=== PATIENT | female | born 2000 | race Two or more races ===

== ENCOUNTER 2024-05-08 10:33 | Emergency (ER) | payer OTHER ==
[2024-05-08 11:11] LABS: HCG UR QUAL NEGATIVE
[2024-05-08] MEDS ORDERED: iohexoL-300 100 ML VIAL ONE (11:23)
[2024-05-08 11:32] LABS: BASOPHILS # (AUTO) 0.1 10^3/uL (0.0-0.1); BASOPHILS % (AUTO) 0.9 %; EOSINOPHILS # (AUTO) 0.1 10^3/uL (0.0-0.7); EOSINOPHILS % (AUTO) 0.7 %; HCT - HEMATOCRIT 37.6 % (37.0-47.0); HGB - HEMOGLOBIN 12.3 g/dL (12.0-16.0); LYMPHOCYTES # (AUTO) 4.4 10^3/uL (1.5-3.5); LYMPHOCYTES % (AUTO) 46.3 %; MEAN CORPUSCULAR HEMOGLOBIN 28.6 pg (27.0-31.0); MEAN CORPUSCULAR HGB CONC 32.7 g/dL (32.0-36.0); MEAN CORPUSCULAR VOLUME 87.4 fL (81.0-99.0); MEAN PLATELET VOLUME 8.7 fL (7.9-10.8); MONOCYTES # (AUTO) 0.7 10^3/uL (0.0-1.0); MONOCYTES % (AUTO) 6.9 %; NEUTROPHILS # (AUTO) 4.3 10^3/uL (1.5-6.6); NEUTROPHILS % (AUTO) 44.9 %; PLT - PLATELET COUNT 262 10^3/uL (130-450); RED CELL DISTRIBUTION WIDTH 12.5 % (12.0-15.0); WHITE BLOOD COUNT 9.5 x10^3/uL (4.8-10.8)
[2024-05-08 11:45] LABS: ALBUMIN 4.6 g/dL (3.2-5.5); ALBUMIN/GLOBULIN RATIO 1.5 (1.0-2.2); CALCIUM 9.6 mg/dL (8.5-10.3); CREATININE 0.7 mg/dL (0.6-1.3); POTASSIUM 3.7 mmol/L (3.5-4.5); TOTAL PROTEIN 7.6 g/dL (6.4-8.9)
--- NOTE | 2024-05-08 11:45 | ED Physician Documentation ---
PD HPI ABD PAIN - Stated complaint Stated Complaint: R AB PX POST SX - Chief complaint Chief Complaint: Abd Pain - History obtained from History obtained from: Patient - History of Present Illness Associated symptoms: No: Hematemesis, Diarrhea, Constipation, Melena, Hematochezia, Dysuria, Hematuria - Additional information Additional information: Patient is a 23-year-old female who states that about a week ago she started developing right lower quadrant abdominal pain. She states that she had her appendix and August. She states since that time she has had intermittent right lower quadrant abdominal pain. She states that they have told her this is due to adhesions. She states that she felt like she had a fever yesterday. She states that it is also painful in that area when she is having intercourse. No vaginal bleeding or discharge. Denies any possibility of . Some nausea but no vomiting. No diarrhea or constipation. She states that all of her prior testing was done in [place] Review of Systems Constitutional: denies: Fever, Chills GI: denies: Vomiting, Diarrhea Skin: denies: Rash Musculoskeletal: denies: Neck pain, Back pain Neurologic: denies: Headache PD PAST MEDICAL HISTORY - Past Medical History Past Medical History: No - Past Surgical History Past Surgical History: Yes General: Appendectomy - Present Medications Home Medications: Ambulatory Orders Medication Instructions Recorded Confirmed No Known Home Medications 05/08/24 05/08/24 - Allergies Allergies/Adverse Reactions: Allergies Allergy/AdvReac Type Severity Reaction Status Date / Time No Known Drug Allergies Allergy Verified 05/08/24 10:44 - Social History Does the pt smoke?: No Smoking Status: Never smoker Does the pt drink ETOH?: Yes Does the pt have substance abuse?: No - Immunizations Immunizations are current?: Yes - POLST Patient has POLST: No PD ED PE NORMAL - Vitals Vital signs reviewed: Yes - General General: Alert and oriented X 3, No acute distress - HEENT HEENT: Moist mucous membranes - Neck Neck: Supple, no meningeal sign - Cardiac Cardiac: RRR - Respiratory Respiratory: No respiratory distress, Clear bilaterally - Abdomen Abdomen: Soft, Non tender, Non distended - Back Back: No CVA TTP, No spinal TTP - Derm Derm: Warm and dry - Neuro Neuro: Alert and oriented X 3 - Psych Psych: Normal mood, Normal affect Results - Vitals Vitals: Vital Signs - 24 hr 05/08/24 05/08/24 10:41 14:13 Temperature 37.1 C 36.7 C Heart Rate 79 72 Respiratory 20 16 Rate Blood Pressure 119/63 115/69 O2 Saturation 100 99 Oxygen O2 Source Room air - Labs Labs: Laboratory Tests 05/08/24 05/08/24 05/08/24 10:55 10:55 11:23 WBC 9.5 RBC 4.30 Hgb 12.3 Hct 37.6 MCV 87.4 MCH 28.6 MCHC 32.7 RDW 12.5 Plt Count 262 MPV 8.7 Neut # (Auto) 4.3 Lymph # (Auto) 4.4 H Keith # (Auto) 0.7 Eos # (Auto) 0.1 Baso # (Auto) 0.1 Absolute Nucleated RBC 0.00 Nucleated RBC % 0.0 Sodium Potassium Chloride Carbon Dioxide Anion Gap BUN Creatinine Estimated GFR (MDRD) Glucose Calcium Total Bilirubin AST ALT Alkaline Phosphatase Total Protein Albumin Globulin Albumin/Globulin Ratio Lipase Urine Color LT. YELLOW Urine Clarity CLEAR Urine pH 6.5 Ur Specific Virgie 1.010 Urine Protein NEGATIVE Urine Glucose (UA) NEGATIVE Urine Ketones NEGATIVE Urine Occult Blood NEGATIVE Urine Nitrite NEGATIVE Urine Bilirubin NEGATIVE Urine Urobilinogen 0.2 (NORMAL) Ur Leukocyte Esterase NEGATIVE Ur Microscopic Review NOT INDICATED Urine Culture Comments NOT INDICATED Urine HCG, Qual NEGATIVE 05/08/24 11:23 WBC RBC Hgb Hct MCV MCH MCHC RDW Plt Count MPV Neut # (Auto) Lymph # (Auto) Keith # (Auto) Eos # (Auto) Baso # (Auto) Absolute Nucleated RBC Nucleated RBC % Sodium 135 Potassium 3.7 Chloride 102 Carbon Dioxide 27 Anion Gap 6.0 BUN 9 Creatinine 0.7 Estimated GFR (MDRD) 104 Glucose 89 Calcium 9.6 Total Bilirubin 1.0 AST 16 ALT 16 Alkaline Phosphatase 63 Total Protein 7.6 Albumin 4.6 Globulin 3.0 Albumin/Globulin Ratio 1.5 Lipase 14 Urine Color Urine Clarity Urine pH Ur Specific Virgie Urine Protein Urine Glucose (UA) Urine Ketones Urine Occult Blood Urine Nitrite Urine Bilirubin Urine Urobilinogen Ur Leukocyte Esterase Ur Microscopic Review Urine Culture Comments Urine HCG, Qual - Rads (name of study) CT abdomen pelvis Relevant Findings:: Final report received, See rad report PD Medical Decision Making - ED course Complexity details: reviewed results, re-evaluated patient, considered differential, d/w patient, d/w family ED course: 23-year-old female with right-sided abdominal pain, this has been ongoing intermittently since her appendectomy. CT scan does not show any acute abnormalities. Laboratory testing does not show any acute abnormalities. Urinalysis is negative. She also stated that she does have pain with interco urse, recommend that she follow-up with gynecology regarding this. She does not have any vaginal bleeding, discharge, STD exposure. Patient is well-appearing, nontoxic. Can utilize Motrin or Tylenol as needed for pain. Patient counseled regarding signs and symptoms for which I believe and urgent re-evaluation would be necessary. Patient with good understanding of and agreement to plan and is c omfortable going home at this time This document was made in part using voice recognition software. While efforts are made to proofread this document, sound alike and grammatical errors may occur. Departure - Departure Disposition: 01 Home, Self Care Clinical Impression: Abdominal pain Qualifiers: Abdominal location: unspecified location Qualified Code(s): R10.9 - Unspecified abdominal pain Condition: Good Instructions: ED Abdominal Pain Female Non-Specific Abdominal Pain Follow-Up: your,doctor in 1 week [Other] [facility] [Provider Group] Comments: Your laboratory testing and CT scan do not show any acute abnormalities today. Please follow-up with your doctor for further care. Please return if you worsen. You can also follow-up with the women[facility] health clinic regarding your pain with intercourse. Forms: PCP List Discharge Date/Time: 05/08/24 14:17
[2024-05-08] MEDS: iohexoL-300 100 ML VIAL IVP ONE (12:33)
[2024-05-08 12:37] LABS: BILIRUBIN,URINE NEGATIVE (NEGATIVE); GLUCOSE, URINE (UA) NEGATIVE (NEGATIVE); KETONES,URINE (UA) NEGATIVE (NEGATIVE); LEUKOCYTE ESTERASE, URINE NEGATIVE (NEGATIVE); NITRITE,URINE NEGATIVE (NEGATIVE); OCCULT BLOOD,URINE NEGATIVE (NEGATIVE); PH,URINE 6.5 PH (5.0-7.5); PROTEIN,URINE NEGATIVE (NEGATIVE); UROBILINOGEN,URINE 0.2 (NORMAL) E.U./dL (NORMAL)
[2024-05-08 12:38] LABS: CLARITY,URINE CLEAR (CLEAR)
--- NOTE | 2024-05-08 12:42 | CT Report ---
PROCEDURE: Abdomen/Pelvis W INDICATIONS: RLQ s/p appy 6 months ago CONTRAST: Omni 300 100ml TECHNIQUE: After the administration of intravenous contrast, a CT scan of the abdomen and pelvis was performed. Images were recorded and evaluated at appropriate window settings. Reformats: coronal and sagittal. F or radiation dose reduction, the following was used: automated exposure control, adjustment of mA and /or kV according to patient size. COMPARISON: None. FINDINGS: Image quality: Diagnostic. Lower chest: Unremarkable. Liver: No solid mass. Gallbladder: Unremarkable. Biliary tree: No intrahepatic or extrahepatic dilation, accounting for age. Spleen: No splenomegaly. Pancreas: No pancreatic ductal dilation. Adrenals: No adrenal nodule. Kidneys and ureters: No hydronephrosis. No renal cystic lesion which requires follow up. No solid mas s. Stomach, bowel and peritoneum: No gastric or small bowel dilation. No abnormal wall thickening. No pa thologic free fluid. Nonvisualization of the appendix consistent with given history of removal. Minim al dependent pelvic fluid. Lymph nodes: No central or retroperitoneal adenopathy. Vessels: No infrarenal aortic aneurysm. Patent portal vein. PELVIS Reproductive organs: Unremarkable. Bladder: No abnormal wall thickening, accounting for underdistention. Pelvic lymph nodes: No pelvic adenopathy by size criteria. Bones: No aggressive osseous abnormality. Other: No significant ventral or inguinal hernia. IMPRESSION: No visualized cause of right lower quadrant pain. No acute intra-abdominal or pelvic process. Diverticulosis. Reviewed by: Lindsay Llanes MD on 05/08/2024 12:41 PM PDT Approved by: Lindsay Llanes MD on 05/08/2024 12:41 PM PDT Station ID: [id number]
[2024-05-08 14:29] VITALS: BP 115/69; O2SAT 99
== END 2024-05-08 14:17 | disposition home or self-care (01) ==
LOC: ED 10:33
DX: R10.32 Left lower quadrant pain (principal)
CPT/HCPCS: 36415; 74177; 80053; 81003; 81025; 83690; 85025; 99283; 99284; Q9967; 81001; 87086